=== PATIENT | female | born 1970 | race Caucasian/White ===

== ENCOUNTER 2020-07-11 18:16 | Emergency (ER) | payer MEDICAID ==
[~2020-07-11] VITALS: Ht 160 cm; Wt 78.0 kg
[2020-07-11] MEDS ORDERED: SODIUM CHLORIDE 0.9% 1,000 ML IV ONE (18:45)
[2020-07-11] MEDS ORDERED: PROCHLORPERAZINE 10MG/2ML VIAL IV ONE (18:45)
[2020-07-11 19:21] LABS: BASOPHILS % 0.4 % (0.0-2.0); EOSINOPHILS % 1.5 % (0.0-5.0); HEMATOCRIT. 40.3 % (36.0-48.0); HEMOGLOBIN. 13.5 g/dL (12.0-16.0); MEAN CORPUSCULAR HEMOGLOBIN 32.8 pg (28.0-32.0); MEAN CORPUSCULAR VOLUME 97.6 fL (81.0-99.0); MEAN PLATELET VOLUME 8.7 fl (7.4-10.4); MONOCYTES % 7.3 % (2.0-8.0); NEUTROPHILS % 64.8 % (40.0-76.0); PLATELET 236 x1000/uL (130-400); RED BLOOD CELL COUNT 4.13 mill/uL (4.2-5.4); RED CELL DISTRIBUTION WIDTH 12.3 % (11.6-14.6)
[2020-07-11 19:24] LABS: CHLORIDE 106 mEq/L (98-107)
[2020-07-11 20:03] VITALS: BP 112/56
== END 2020-07-11 20:05 | disposition home or self-care (01) ==
LOC: ER 18:30
DX: R51.9 Headache, unspecified (principal); H93.13 Tinnitus, bilateral
CPT/HCPCS: 36415; 70450; 80053; 85025; 93005; 96361; 96374; 99284; J0780; J7030

== ENCOUNTER 2022-06-12 16:09 | Emergency (ER) | payer MEDICAID ==
[~2022-06-12] VITALS: Ht 160 cm; Wt 81.0 kg
[2022-06-12 16:17] VITALS: BP 139/63
== END 2022-06-12 21:15 | disposition left against medical advice (07) ==
LOC: ER 16:09
DX: Z53.21 Procedure and treatment not carried out due to patient leaving prior to being seen by health care provider (principal)